=== PATIENT | female | born 1995 | race Caucasian/White ===

== ENCOUNTER 2023-10-15 23:19 | Observation (INO) | payer BC ==
[2023-10-16 00:06] LABS: BILIRUBIN,URINE NEGATIVE (NEGATIVE); COLOR,URINE YELLOW; GLUCOSE,URINE NEGATIVE (NEGATIVE); KETONES,URINE NEGATIVE (NEGATIVE); LEUKOCYTE ESTERASE,URINE SMALL (NEGATIVE); NITRITE,URINE NEGATIVE (NEGATIVE); OCCULT BLOOD,URINE LARGE (NEGATIVE); PROTEIN,URINE NEGATIVE (NEGATIVE); UROBILINOGEN,URINE 0.2 EU/dL (<2.0)
[2023-10-16 00:07] LABS: APPEARANCE,URINE HAZY
[2023-10-16] MEDS ORDERED: Lactated Ringers 1,000 ML IV SCH ×2 (02:45→03:30)
[2023-10-16] MEDS ORDERED: Docusate Sodium 100 MG Cap PO PRN (03:19)
[2023-10-16] MEDS ORDERED: Water For Irrigation,Sterile 1,000 ML Container IRR PRN (03:19)
[2023-10-16] MEDS ORDERED: Sodium Chloride 0.9% 2.5 ML Syringe FLUSH PRN (03:19)
[2023-10-16] MEDS ORDERED: Calcium Gluconate 10% 1 GM/10 ML SDV IVPUSH PRN (03:19)
[2023-10-16] MEDS ORDERED: Sodium Chloride 0.9% 10 ML Syringe FLUSH PRN (03:19)
[2023-10-16] MEDS ORDERED: Butorphanol 2 MG/ML SDV IVPUSH PRN (03:19)
[2023-10-16] MEDS ORDERED: Misoprostol 200 MCG Tab PO PRN (03:19)
[2023-10-16] MEDS ORDERED: Sodium Chloride 0.9% 20 ML SDV IV PRN (03:19)
[2023-10-16] MEDS ORDERED: Methylergonovine 0.2 MG/1 ML Amp IM PRN (03:19)
[2023-10-16] MEDS ORDERED: Acetaminophen 325 MG Tab PO PRN (03:19)
[2023-10-16] MEDS ORDERED: Lidocaine 1% 50 ML MDV INJECT PRN (03:19)
[2023-10-16] MEDS ORDERED: Tranexamic Acid IN NACL,ISO-OS 1,000 MG in Premix Bag 1 BAG IV PRN (03:19)
[2023-10-16] MEDS ORDERED: Carboprost Tromethamine 250 MCG/1 mL Vial IM PRN (03:19)
[2023-10-16] MEDS ORDERED: Betamethasone Acetate/Betamethasone Sod Phosphate 6 MG/1 ML MDV IM SCH (03:30)
[2023-10-16] MEDS ORDERED: Oxytocin/0.9 % Sodium Chloride 30 UNIT/500 ML BAG IV SCH (03:30)
[2023-10-16 03:38] LABS: HEMATOCRIT 26.1 % (37.0-47.0); HEMOGLOBIN 9.2 g/dL (12.0-16.0); MEAN CORPUSCULAR HEMOGLOBIN 32.2 pg (28.0-32.0); MEAN CORPUSCULAR HGB CONC 35.2 g/dL (32.0-36.0); MEAN CORPUSCULAR VOLUME 91.3 fL (83.0-99.0); MEAN PLATELET VOLUME 10.6 fL (9.4-12.3); PLATELET COUNT,PLT 286 K/uL (150-400); RED BLOOD CELL COUNT 2.86 M/uL (4.10-5.30); WHITE BLOOD CELL COUNT,WBC 17.85 K/uL (3.9-11.3)
[2023-10-16] MEDS: Betamethasone Acetate/Betamethasone Sod Phosphate 6 MG/1 ML MDV IM SCH (03:41)
[2023-10-16] MEDS: Magnesium Sulfate/Water 4 GM in Premix Bag 1 BAG IV ONE (03:51)
[2023-10-16] MEDS: Ampicillin 2 GM in Sodium Chloride 0.9% 100 ML IV ONE (03:52)
[2023-10-16] MEDS: Magnesium Sulfate/Water 20 GM/500 ML BAG IV SCH (04:06)
[2023-10-16] MEDS: Indomethacin 25 MG Cap PO PRN (04:09)
[2023-10-16] MEDS: Ondansetron 4 MG/2 ML SDV IVPUSH PRN (04:29)
[2023-10-16 23:55] LABS: GROUP B STREP BY PCR NEGATIVE (NEGATIVE)
== END 2023-10-16 05:40 ==
LOC: MW.OBCHECK 23:19 → MW.OB 23:21 → MW.OBCHECK 10-16 03:19
PROVIDERS: ADMIT Obstetrics & Gynecology; ATTEND Obstetrics & Gynecology
DX: O60.02 Preterm labor without delivery, second trimester (principal); Z3A.23 23 weeks gestation of pregnancy
CPT/HCPCS: 36415; 51702; 76805; 81003; 85027; 86592; 86850; 86900; 86901; 87653; A9270; J0290; J0702; J2405; J3475; J3490; 96372; 96374; 96375; 96376; G0378